=== PATIENT | female | born 1955 | race Caucasian/White ===

== ENCOUNTER 2020-11-19 08:00 | Emergency (ER) | payer MEDICARE ==
[~2020-11-19] VITALS: Ht 172.7 cm; Wt 57.3 kg
[2020-11-19] MEDS ORDERED: LIDOcaine Viscous 15ml cup MM ONE (08:55)
[2020-11-19] MEDS ORDERED: mag hydrox/Alum hydrox/simeth 30ml oral suspension PO ONE (08:55)
[2020-11-19] MEDS ORDERED: sucralfate 1gm/10ml UD suspension PO STA (08:55)
[2020-11-19 09:17] LABS: H PYLORI ANTIBODY NEGATIVE (Neg)
[2020-11-19] MEDS ORDERED: PANT20TA2 PO (09:21)
[2020-11-19] MEDS ORDERED: SUCR1ORA12 PO (09:21)
[2020-11-19 09:44] VITALS: BP 142/85
== END 2020-11-19 09:49 | disposition home or self-care (01) ==
LOC: ER 08:01
DX: R10.13 Epigastric pain (principal); K21.9 Gastro-esophageal reflux disease without esophagitis; Z79.899 Other long term (current) drug therapy
CPT/HCPCS: 36415; 86677; 99283

== ENCOUNTER 2020-12-02 12:32 | Emergency (ER) | payer MEDICARE ==
[~2020-12-02] VITALS: Ht 172.7 cm; Wt 55.5 kg
[~2020-12-02 12:32] MED LIST: PANT20TA2 PO; SUCR1ORA12 PO
[2020-12-02] MEDS ORDERED: normal saline 1000ML IV soln IVB ONE (12:50)
[2020-12-02 13:10] LABS: BASOPHILS # (AUTO) 0.1 X10'3 (0-0.2); BASOPHILS % (AUTO) 0.7 % (0-1); EOSINOPHILS % (AUTO) 0.4 % (0-6); HEMATOCRIT 41.3 % (35.0-45.0); HEMOGLOBIN 14.2 g/dl (12.0-16.0); LYMPHOCYTES # (AUTO) 1.7 X10'3 (1.1-4.8); LYMPHOCYTES % (AUTO) 19.8 % (21-51); MEAN CORPUSCULAR HEMOGLOBIN 31.1 PG (27.0-31.0); MEAN CORPUSCULAR HGB CONC 34.3 g/dL (33.0-36.5); MEAN CORPUSCULAR VOLUME 90.7 FL (78-98); MEAN PLATELET VOLUME 7.9 FL (7.4-10.4); MONOCYTES # (AUTO) 0.5 X10'3 (0-0.9); MONOCYTES % (AUTO) 6.2 % (2-12); NEUTROPHILS # (AUTO) 6.1 X10'3 (1.8-7.7); NEUTROPHILS % (AUTO) 72.9 % (42-75); PLATELET COUNT 350 X10'3 (140-440); RED BLOOD COUNT 4.56 X10'6 (4.20-5.60); RED CELL DISTRIBUTION WIDTH 12.6 % (11.5-14.5); WHITE BLOOD COUNT 8.4 X10'3 (4.5-11.0)
[2020-12-02 13:23] LABS: ALANINE AMINOTRANSFERASE 24 U/L (12-78); ALBUMIN 4.2 G/DL (3.4-5.0); ALBUMIN/GLOBULIN RATIO 1.4 (1.1-1.5); ALKALINE PHOSPHATASE 59 IU/L (46-116); ANION GAP 9 (8-16); ASPARTATE AMINO TRANSFERASE 13 U/L (10-37); BILIRUBIN,TOTAL 0.6 MG/DL (0.1-1.0); BLOOD UREA NITROGEN 22 MG/DL (7-18); BUN/CREATININE RATIO 26.2 (6.6-38.0); CALCIUM 9.3 MG/DL (8.5-10.1); CHLORIDE 103 MMOL/L (99-107); CREATININE 0.84 MG/DL (0.40-0.90); GLUCOSE 106 MG/DL (70-104); LIPASE 102 U/L (73-393); POTASSIUM 3.9 MMOL/L (3.5-5.1); SODIUM 140 MMOL/L (135-145); TOTAL CARBON DIOXIDE 27.7 MMOL/L (24-32); TOTAL PROTEIN 7.3 G/DL (6.4-8.2); eGFR 68 ML/MIN
[2020-12-02] MEDS ORDERED: IOHEXOL PO ONE (13:55)
[2020-12-02] MEDS ORDERED: iohexol 300mg/ml 100ml inj. ONE (15:15)
--- NOTE | 2020-12-02 15:16 | NUR ---
PT TO CT VIA WHEELCHAIR WITH WIDTH STRIPPER
--- NOTE | 2020-12-02 15:30 | NUR ---
PT BACK FROM CT.
[2020-12-02 16:13] VITALS: BP 139/88
[2020-12-02] MEDS ORDERED: HYDR-3965 PO (16:36)
== END 2020-12-02 16:18 | disposition home or self-care (01) ==
LOC: ER 12:33
DX: R10.13 Epigastric pain (principal); N28.9 Disorder of kidney and ureter, unspecified; Z79.899 Other long term (current) drug therapy
CPT/HCPCS: 36415; 74177; 80053; 83690; 85025; 96360; 99285; J7030; Q9967